=== PATIENT | male | born 1990 | race Caucasian/White ===

== ENCOUNTER 2024-01-10 22:37 | Emergency (ER) | payer SELFPAY ==
[2024-01-10 22:58] VITALS: BP 129/92; PULSE 82; RESP 16; TEMP 97.7; O2SAT 98
--- NOTE | 2024-01-10 23:27 | ERPHSYRPT ---
- History of Present Illness Time Seen by Provider: 01/10/24 23:06 Source: patient Exam Limitations: no limitations Patient Subjective Stated Complaint: police department secretary states that pt MICHELLE is 318 and needs medical clearance Triage Nursing Assessment: pt ambulated into the er; pt is axo x4; ETOH; pt denies pain; no respiratory distress present; skin PDW; vitals wnl Physician History: 33-year-old with a history of anxiety/depression is brought in the ER by PD for medical clearance. Patient reports he was drinking earlier, was pulled over by PD because of impaired driving. Did not crash his car. Patient reports occasional drinking and denies any substance use. Denies any suicidal or homicidal ideations. Patient is awake alert oriented with no distress. Holding conversation. Lungs clear to auscultation. Not tachypnea or tachycardia. No signs of trauma. Patient initial blood draw is 318. I do not think patient needs any testing, is medically cleared, vitals are stable, stable for discharge. Allergies/Adverse Reactions: No Known Drug Allergies Allergy (Unverified 01/10/24 22:49) Home Medications: Sertraline HCl [Zoloft] 100 mg PO DAILY 01/10/24 [History] Hx Tetanus, Diphtheria Vaccination/Date Given: Yes (2020) Hx Influenza Vaccination/Date Given: No Hx Pneumococcal Vaccination/Date Given: No Travel Risk - International Travel Have you traveled outside of the country in past 3 weeks: No - Emerging Infectious Disease Are you exhibiting symptoms associated with any current EIDs: No - Review of Systems Constitutional: No Symptoms Eyes: Eye Redness Ears, Nose, & Throat: No Symptoms Respiratory: No Symptoms Cardiac: No Symptoms Abdominal/Gastrointestinal: No Symptoms Genitourinary Symptoms: No Symptoms Musculoskeletal: No Symptoms Skin: No Symptoms Neurological: No Symptoms Endocrine: No Symptoms Hematologic/Lymphatic: No Symptoms - Past Medical History Pertinent Past Medical History: Yes Neurological History: No Pertinent History ENT History: No Pertinent History Cardiac History: No Pertinent History Respiratory History: No Pertinent History Endocrine Medical History: No Pertinent History Musculoskeletal History: No Pertinent History GI Medical History: No Pertinent History History: No Pertinent History Psycho-Social History: Attention Deficit Disorder, Depression Male Reproductive Disorders: No Pertinent History - Past Surgical History Past Surgical History: Yes Genitourinary: No Pertinent History Musculoskeletal: No Pertinent History Male Surgical History: No Pertinent History Other Surgical History: madyson tubes in ears, 3 times, rt arm - Social History Smoking Status: Current every day smoker How long have you smoked: 18 Exposure to second hand smoke: Yes Drug Use: none - Social Determinants of Health Will the patient participate in the screening: Yes Do you worry about a steady place to live?: No Do you have any problems with any of the following?: No known problems In the past 12 months,have you had to go without utilities?: No Transportation Issues: No Has anyone in your support network made you feel unsafe?: No Have you or anyone in your house had to go without enough: No - Nursing Vital Signs Nursing Vital Signs: Initial Vital Signs Temperature 97.7 F 01/10/24 22:50 Pulse Rate 82 01/10/24 22:50 Respiratory Rate 16 01/10/24 22:50 Blood Pressure 129/92 01/10/24 22:50 O2 Sat by Pulse Oximetry 98 01/10/24 22:50 Pain Scale Pain Intensity 0 - Physical Exam General Appearance: no apparent distress, alert Eye Exam: PERRL/EOMI Ears, Nose, Throat Exam: normal ENT inspection, TMs normal, pharynx normal, moist mucous membranes Neck Exam: normal inspection Respiratory Exam: normal breath sounds, lungs clear Cardiovascular Exam: regular rate/rhythm, normal heart sounds Gastrointestinal/Abdomen Exam: soft, normal bowel sounds Back Exam: normal inspection, normal range of motion Extremity Exam: normal inspection, normal range of motion, pelvis stable Neurologic Exam: alert, oriented x 3, cooperative, news production assistant II-XII nml as tested, sensation nml, No motor deficits Skin Exam: normal color SpO2 Interpretation: normal SpO2: 98 O2 Delivery: Room Air - Progress Progress: unchanged Progress Note: 01/10/24 23:28 33-year-old with a history of anxiety/depression is brought in the ER by PD for medical clearance. Patient reports he was drinking earlier, was pulled over by PD because of impaired driving. Did not crash his car. Patient reports occasional drinking and denies any substance use. Denies any suicidal or homicidal ideations. Patient is awake alert oriented with no distress. Holding conversation. Lungs clear to auscultation. Not tachypnea or tachycardia. No signs of trauma. Patient initial blood draw is 318. I do not think patient needs any testing, is medically cleared, vitals are stable, stable for discharge. He will be placed on a suicidal watch/drunk tank. Counseled pt/family regarding: lab results, diagnosis, need for follow-up Medical Desision Making - Diagnostic Testing Diagnostic test were ordered, analyzed, and reviewed by me: Yes - Departure Departure Disposition: Home Clinical Impression: Encounter for medical clearance for patient hold, Alcohol abuse Condition: Stable Critical Care Time: No Referrals: SCREEN,DRUG [Primary Care Provider] - Follow up/PCP as directed Instructions: Alcohol use disorder - Discharge instructions Additional Instructions: Patient is medically cleared to go to assisted. Place him in drunk tank,/medical/suicidal watch. Follow-up with primary care for reevaluation return to ER for any worsening of symptoms, not acting himself, intractable headache, visual disturbance, numbness tingling or focal weakness etc.
== END 2024-01-10 23:41 | disposition home or self-care (01) ==
LOC: ED 22:37
DX: Z02.89 Encounter for other administrative examinations (principal); F10.10 Alcohol abuse, uncomplicated; Y90.8 Blood alcohol level of 240 mg/100 ml or more; Z79.899 Other long term (current) drug therapy
CPT/HCPCS: 99281